=== PATIENT | female | born 1970 | race Caucasian/White ===

== ENCOUNTER 2021-03-28 17:37 | Observation (INO) | payer OTHER ==
[2021-03-28] VITALS (12 sets, daily range): BP systolic 97–116; BP diastolic 50–68
[~2021-03-28] VITALS: Ht 162.6 cm; Wt 85.9 kg
[~2021-03-28 17:37] MED LIST: CIPROFLOXACN500 MG PO; DIFLUCAN100 M1 PO; FERR SULFATE325 MG PO; FERROUS SULF325 M2 PO; FIORICET PO; KEFLEX500 MG PO; SEROQUEL100 MG PO; VITAMIN B121000 MC1 PO
[2021-03-28] MEDS ORDERED: ABILIFY5 MG PO (18:14)
[2021-03-28] MEDS ORDERED: TRAZODONE50 MG PO (18:15)
[2021-03-28 18:35] LABS: HEMATOCRIT 25.2 % (37.0-47.0); IMMATURE GRANULOCYTES 0.2 % (0.0-5.0); MEAN CELL VOLUME 61.5 fL CALC (80.0-100.0); MEAN CORPUSCULAR HGB 15.9 pG CALC (26.0-32.0); MEAN CORPUSCULAR HGB CONC 25.8 g/dL CAL (32.0-36.0); NEUT# 2.82 thou/uL (2.00-7.15); RED BLOOD COUNT 4.1 mill/uL (4.20-5.60); RED CELL DISTRI WIDTH 22.3 % (11.5-15.5)
[2021-03-28 18:37] LABS: HEMOGLOBIN 6.5 g/dl (12.0-16.0)
[2021-03-28 18:54] LABS: ALBUMIN 3.5 g/dL (3.2-5.0); ALKALINE PHOSPHATASE 54 u/l (38-126); ANION GAP 10 (6-22 (CALC)); BILIRUBIN, TOTAL 0.3 mg/dL (0.0-1.4); BUN 12 mg/dL (7-17); BUN/CREATININE RATIO 14 (12-20 (CALC)); CARBON DIOXIDE 26 mmol/l (22-30); CHLORIDE 104 mmol/l (95-108); CREATININE 0.9 mg/dL (0.5-1.0); GFR > 60 ML/MIN (>=60 (CALC)); GFR FOR AFR.AMER. > 60 ML/MIN (>=60 (CALC)); SGOT/AST 22 u/l (14-36); SODIUM 136 mmol/l (137-146)
[2021-03-29] VITALS (10 sets, daily range): BP systolic 93–113; BP diastolic 50–73
--- NOTE | 2021-03-29 01:00 | NUR ---
PHYSICAL ASSESMENT COMPLETE. PT CURRENTLY DENIES PAIN OR DISCOMFORT. SCHEDULED MEDICATIONS AND PRN MEDICATION ADMINISTERED, SEE E-MAR. PT DENIES ANY NEEDS AT THIS TIME. PLAN OF CARE REVIEWED, PT DENIES QUESTIONS, VERBALIZES UNDERSTANDING. ITEMS WITHIN REACH, BED LOCKED IN LOW POSITION W/ BEDRAILS UP X2. CALL LIRIANO WITHIN REACH, AGREES TO CALL PRN.
--- NOTE | 2021-03-29 01:30 | NUR ---
PT ADMINISTERED BLOOD TRANSFUSION. PT TOLERATING PROCEDURE WELL, WITH NO DISCOMFORT OR PAIN.
--- NOTE | 2021-03-29 01:41 | NUR ---
PT RECEIVED FROM ED TO ROOM 261. ARRIVES VIA W/C ACCOMPANIED BY eD RN. PT AMBULATORY TO BED. GAIT STEADY. PT DENIES PAIN AT THIS TIME. ORIENTED TO UNIT, ROOM, CALL LIRIANO, LIGHTS, TV. ICE WATER,FOOD AND WARM BLANKET PROVIDED. CALL LIRIANO WITHIN REACH. AGREES TO CALL PRN.
--- NOTE | 2021-03-29 04:24 | NUR ---
PI RECEIVIMG BLOOD. PT TOLERTIMG PROCEDURE WELL. PT IS FROM A [facility] WITH ONE GUARD AT BEDSIDE AND HAND CUFFS THAT ARE SECURED TO THE BED AND LEFT WRIST. GOOD CIRCULATION VERIFIED.
--- NOTE | 2021-03-29 07:30 | NUR ---
PATIENT LAYING IN BED AT THIS TIME ALERT AND ORIENTED AND SHACKLED TO BED BY LEFT WRIST AND BOTH LOWER ANKLES SHACKELD TOGETHER. PATIENT SHACKLES ARE NOT CAUSING ANY BLOOD FLOW DIFFICULTY AT THIS TIME. [employer] MANAGER DONE SEE INTERVENTIONS. PATIENT DEINES ANY SHORTNESS OF BREATH AT THIS TIME AND OR PAIN. TELE MONITOR IN PLACE AND BEING MONITORED BY ED. 1 GUARD AT BEDSIDE AT THIS TIME.
[2021-03-29 07:56] LABS: MEAN CORPUSCULAR HGB 21.2 pG CALC (26.0-32.0); MEAN CORPUSCULAR HGB CONC 29.6 g/dL CAL (32.0-36.0); RED BLOOD COUNT 5.18 mill/uL (4.20-5.60); RED CELL DISTRI WIDTH 29.9 % (11.5-15.5)
[2021-03-29 08:33] LABS: HEMATOCRIT 37.1 % (37.0-47.0); MEAN CELL VOLUME 71.6 fL CALC (80.0-100.0)
[2021-03-29 08:37] LABS: ANION GAP 11 (6-22 (CALC)); BUN 9 mg/dL (7-17); BUN/CREATININE RATIO 12 (12-20 (CALC)); CARBON DIOXIDE 24 mmol/l (22-30); CHLORIDE 107 mmol/l (95-108); CREATININE 0.7 mg/dL (0.5-1.0); GFR > 60 ML/MIN (>=60 (CALC)); GFR FOR AFR.AMER. > 60 ML/MIN (>=60 (CALC)); POTASSIUM 4.1 mmol/l (3.5-5.1); SODIUM 138 mmol/l (137-146)
--- NOTE | 2021-03-29 11:58 | NUR ---
PATIENT RESTINGIN BED AT THIS TIME. PATIENT HAS BEEN D/C AND VERBALIZES UNDERSTANDING OF D/C INSTUCTIONS AT THIS TIME.
--- NOTE | 2021-03-29 12:12 | NUR ---
PATIENT D/C AND REPORT CALLED TO JAQULINE AT [facility]. IV REMOVED TIP INTACT TELE MONITOR REMOVED SIRISHA LINDSEY IN ED NOTIFIED.
--- NOTE | 2021-03-29 12:27 | NUR ---
Discharge instructions given. Patient verbalizes understanding of same. [facility] in stable [facility]. All belongings sent with pt. REPORT WAS CALLED TO OCTAVIANO AT THE [facility].
== END 2021-03-29 12:27 | DRG 812 ==
LOC: ED 17:37 → MS2 19:15 → ED-I 19:20 → ED 19:20 → MS2 03-29 12:27
PROVIDERS: Emergency Medicine; ADMIT Hospitalist; ATTEND Hospitalist
PROC: 30233N1 Transfusion of Nonautologous Red Blood Cells into Peripheral Vein, Percutaneous Approach (ICD-10-PCS; principal; 2021-03-28)
PROC: 30233N1 Transfusion of Nonautologous Red Blood Cells into Peripheral Vein, Percutaneous Approach (ICD-10-PCS; 2021-03-29)
PROC: 30233N1 Transfusion of Nonautologous Red Blood Cells into Peripheral Vein, Percutaneous Approach (ICD-10-PCS; 2021-03-29)
DX: D64.9 Anemia, unspecified (principal); E53.8 Deficiency of other specified B group vitamins; I95.9 Hypotension, unspecified; F31.9 Bipolar disorder, unspecified; F41.9 Anxiety disorder, unspecified; Z98.84 Bariatric surgery status; Z20.822 Contact with and (suspected) exposure to COVID-19; R42 Dizziness and giddiness; R53.83 Other fatigue
CPT/HCPCS: G0378; J3420; P9016